=== PATIENT | female | born 1970 | race Caucasian/White ===

== ENCOUNTER 2024-05-13 06:15 | Day surgery (SDC) | payer OTHER, SELFPAY ==
[2024-05-13] VITALS (10 sets, daily range): BP systolic 99–129; BP diastolic 71–84; BMI 28.5
[2024-05-13] MEDS: NORMOSOL-R 1000 IV (09:25)
[2024-05-13] MEDS: ROXICODONE 5 MG PO (12:41)
== END 2024-05-13 12:50 | disposition home or self-care (01) ==
LOC: SDS 06:15
PROVIDERS: ATTENDING PHYSICIAN Urology
DX: T83.84XA Pain due to genitourinary prosthetic devices, implants and grafts, initial encounter (principal); N32.81 Overactive bladder; N31.9 Neuromuscular dysfunction of bladder, unspecified; N39.41 Urge incontinence; R33.9 Retention of urine, unspecified; Y83.1 Surgical operation with implant of artificial internal device as the cause of abnormal reaction of the patient, or of later complication, without mention of misadventure at the time of the procedure
CPT/HCPCS: 64590; 64561; 72170; 76000; C1767; C1778; C1787; L8681